=== PATIENT | male | born 1970 | race Caucasian/White ===

== ENCOUNTER → 2017-11-19 | Outpatient (CLI) | payer MEDICARE, OTHER, MEDICAID ==
[~2017-11-19] MED LIST: AEROECLIPSE1 EACH MC; ALBUTEROL2.5 MG/31 INH; AUGMENTIN 875875 MG PO; AZITHROMYC200 MG/52 PO; BACTRIM DS TAB1 EACH PO; BACTROBAN CREAM30 GM TOP; BIAXIN 500 MG500 M2 PO; CLARITIN10 MG PO; DILANTIN100 MG PO; FLO-PRED15 MG/5 ML PO; MIRALAX17 GM PO; PERIDEX15 ML PO; PHENOBARBI20 MG/5 ML PO; PREDNISONE50 MG PO; PROAIR HFA8.5 GM INH; SEPTRA SUSPENS100 ML PO; VENTOLIN HFA 1818 GM INH; ZPAK PO
== END ==
LOC: M.RAD 09:33
DX: R13.12 Dysphagia, oropharyngeal phase (principal)

== ENCOUNTER 2018-04-01 18:14 | Emergency (ER) | payer MEDICARE, OTHER, MEDICAID ==
[~2018-04-01] VITALS: Ht 162.6 cm; Wt 68.0 kg
[~2018-04-01 18:14] MED LIST changes: -MIRALAX17 GM PO; -PERIDEX15 ML PO
[2018-04-01] MEDS ORDERED: MIRALAX17 GM PO (18:30)
[2018-04-01] MEDS ORDERED: PERIDEX15 ML PO (18:30)
[2018-04-01 18:52] VITALS: BP 132/88
== END 2018-04-01 18:53 | disposition home or self-care (01) ==
LOC: M.ERS 18:14
DX: S00.81XA Abrasion of other part of head, initial encounter (principal); J45.909 Unspecified asthma, uncomplicated; G80.9 Cerebral palsy, unspecified; W06.XXXA Fall from bed, initial encounter; Y93.89 Activity, other specified; Y92.89 Other specified places as the place of occurrence of the external cause; Y99.8 Other external cause status

== ENCOUNTER 2018-06-26 18:16 | Emergency (ER) | payer MEDICARE, OTHER, MEDICAID ==
[~2018-06-26] VITALS: Ht 162.6 cm; Wt 63.5 kg
[~2018-06-26 18:16] MED LIST changes: +MIRALAX17 GM PO; +PERIDEX15 ML PO
[2018-06-26 20:20] VITALS: BP 130/89
== END 2018-06-26 20:21 | disposition home or self-care (01) ==
LOC: M.ERS 18:16
DX: S00.83XA Contusion of other part of head, initial encounter (principal); W05.0XXA Fall from non-moving wheelchair, initial encounter; Y93.89 Activity, other specified; Y92.89 Other specified places as the place of occurrence of the external cause; Y99.8 Other external cause status; J45.909 Unspecified asthma, uncomplicated

== ENCOUNTER 2018-11-22 09:28 | Inpatient (IN) | payer MEDICARE, OTHER, MEDICAID ==
[~2018-11-22] VITALS: Ht 162.6 cm; Wt 65.3 kg
--- NOTE | ~2018-11-22 | CON ---
[address] [address] CONSULTATION Name: PITER RICO Room: [address] IN M.R.#: [id number] Admission: 11/22/18 Attend Phys: Mo Andres MD Discharge: Date of : 68 Report #: [id number] THIS REPORT FOR: //name// CC: Albert Andres DICTATED BY: Jen Murphy [facility] DATE OF SERVICE: 11/23/2018 Please note at the time of this dictation, the patient was seen and physically examined by myself. REASON FOR CONSULTATION: Hematemesis. ALLERGIES: No known drug allergies. MEDICATIONS: From home include phenobarbital, Dilantin, Peridex and MiraLax. PAST MEDICAL HISTORY: Cerebral palsy, asthma, history of seizures. PAST SURGICAL HISTORY: He has a shunt. FAMILY HISTORY: Noncontributory. SOCIAL HISTORY: The patient is now living in a nursing home. No alcohol, tobacco or illegal drug use. REVIEW OF SYSTEMS: Twelve-point review of systems is essentially negative except what is mentioned in the HPI. PHYSICAL EXAMINATION: VITAL SIGNS: Temperature 36.4, pulse 81, respirations 18, blood pressure 94/55. HEART: Regular rate and rhythm. LUNGS: Clear. ABDOMEN: Soft, positive bowel sounds in all 4 quadrants with no masses or tenderness. NEUROLOGIC: Orientation, the patient understands what we are saying, but it is difficult in communicating verbally. LABORATORY DATA: Hemoglobin is 17.3, white count is 16, platelets is 300. BUN is 42, creatinine 0.9, GFR is 90, total bilirubin 0.5, alkaline phosphatase elevated at 174, ALT 29, AST is 15. CT of the abdomen showed fecal distention in the sigmoid and rectal part of the colon with some [place] [address] CONSULTATION Name: PITER RICO Room: [address] IN [facility]#: [id number] Admission: 11/22/18 Attend Phys: Mo Andres MD Discharge: Date of : 68 Report #: [id number] IMPRESSION: 1. Hematemesis. 2. Cerebral palsy. 3. Elevated alkaline phosphatase. 4. Leukocytosis. PLAN: 1. EGD today with Dr. Craft. 2. We will check a GGTP. 3. Further recommendations to be made once the procedure has been performed. Thank you for allowing us to participate in this patient's care. Please do not hesitate to call with any questions in regard to this consult. By: [id number] Craft MD /nt
--- NOTE | ~2018-11-22 | PROC ---
[address] [address] PROCEDURE REPORT Name: PITER RICO Room: [address] IN M.R.#: [id number] Admission: 11/22/18 Attend Phys: Mo Andres MD Discharge: Date of : 68 Report #: [id number] THIS REPORT FOR: //name// For GI report, please see the Provation report in Perceptive 7 content. By: [facility]3Medical Records Staff [facility] /JESUS
[2018-11-22 09:38] VITALS: BP 115/89
[2018-11-22 10:42] LABS: BE -3.3 mmol/L (-2 to +3); PCO2 29.7 mmHg (35.0-45.0); PO2 73.7 mmHg (75.0-100.0); pH 7.433 (7.340-7.450)
[2018-11-22 11:41] LABS: HEMATOCRIT 49.8 % (42.0-52.0); HEMOGLOBIN 17.3 gm/dL (14.0-18.0); MCH 31.1 pg (26.0-34.0); MCHC 34.7 g/dL (28.0-37.0); MCV 89.4 fL (80.0-100.0); MPV 9.2 fl. (7.2-11.1); NUCLEATED RBCS 0 /100WBC; PLATELET COUNT* 300 thou/uL (150-400); RBC 5.57 mil/uL (4.50-6.00); RDW-CV 12.9 % (10.5-14.5)
[2018-11-22 11:52] LABS: ALBUMIN 3.5 g/dL (3.4-5.0); CALCIUM 8.4 mg/dL (8.5-10.1); CREATININE 0.9 mg/dL (0.6-1.3); MAGNESIUM 2.1 mg/dL (1.8-2.4); POTASSIUM 4.1 mmol/L (3.5-5.1); TOTAL BILIRUBIN 0.5 mg/dL (<0.1-1.0)
[2018-11-22 12:01] LABS: ABSOLUTE LYMPHOCYTES 1.4 thou/uL (0.8-5.3); ABSOLUTE MONOCYTES 0.8 thou/uL (0.0-1.2); ABSOLUTE NEUTROPHILS 13.8 thou/uL (1.6-8.1); ANISOCYTOSIS 1+; PLATELET ESTIMATE ADEQUATE; POIKILOCYTOSIS 1+
[2018-11-22 12:06] LABS: DILANTIN 8.5 mcg/mL (10.0-20.0); PHENOBARBITAL* 18.3 mcg/mL (15.0-40.0)
[2018-11-22 14:34] VITALS: BP 115/89
[2018-11-22 14:46] LABS: URINE BILIRUBIN NEGATIVE (Negative); URINE BLOOD NEGATIVE (Negative); URINE CLARITY CLEAR; URINE COLOR YELLOW; URINE GLUCOSE-RANDOM NEGATIVE (Negative); URINE KETONES 1+ (Negative); URINE LEUKOCYTES-REFLEX NEGATIVE (Negative); URINE NITRITE-REFLEX NEGATIVE (Negative); URINE PROTEIN NEGATIVE (Negative); URINE UROBILINOGEN 0.2 E.U./dl (0.2-1.0)
[2018-11-22 15:33] VITALS: BP 115/89
[2018-11-22 15:45] VITALS: BP 105/69
[2018-11-22] MEDS ORDERED: DILANTIN50 MG PO (17:44)
[2018-11-22] MEDS ORDERED: PROAIR RESPICL90 MCG INH (17:45)
[2018-11-22] MEDS ORDERED: TYLENOL325 MG PO (17:46)
[2018-11-22] MEDS ORDERED: BISCOLAX10 MG RECTAL (17:47)
[2018-11-22] MEDS ORDERED: ENEMA133 M1 RECTAL (17:48)
[2018-11-22] MEDS ORDERED: DILANTIN100 MG PO (18:15)
[2018-11-22 21:10] VITALS: BP 94/55
[2018-11-23 08:30] VITALS: BP 134/77
[2018-11-23 11:34] VITALS: BP 134/77
[2018-11-23 15:44] VITALS: BP 119/86
[2018-11-24] VITALS: BP 108/69
[2018-11-24 04:12] LABS: ABSOLUTE EOSINOPHILS 0.3 thou/uL (0.0-0.7); ABSOLUTE LYMPHOCYTES 1.7 thou/uL (0.8-5.3); ABSOLUTE MONOCYTES 0.5 thou/uL (0.0-1.2); ABSOLUTE NEUTROPHILS 3.7 thou/uL (1.6-8.1); BASOPHILS 0.6 %; EOSINOPHILS 4.7 %; HEMATOCRIT 33.1 % (42.0-52.0); LYMPHOCYTES 27.7 %; MCH 31.1 pg (26.0-34.0); MCHC 34.8 g/dL (28.0-37.0); MCV 89.5 fL (80.0-100.0); MONOCYTES 8.1 %; MPV 8.3 fl. (7.2-11.1); NUCLEATED RBCS 0 /100WBC; POLYS 58.9 %; RDW-CV 12.6 % (10.5-14.5); WBC 6.3 thou/uL (4.0-11.0)
[2018-11-24 04:25] LABS: CALCIUM 7.5 mg/dL (8.5-10.1); CREATININE 0.5 mg/dL (0.6-1.3); POTASSIUM 3.1 mmol/L (3.5-5.1)
[2018-11-24 04:37] LABS: HEMOGLOBIN 11.5 gm/dL (14.0-18.0); PLATELET COUNT* 187 thou/uL (150-400)
[2018-11-24 08:16] VITALS: BP 111/58
[2018-11-24 13:48] LABS: % SATURATION 19 % (20-39); IRON 34 ug/dL (50-175)
[2018-11-24 16:00] VITALS: BP 115/81
[2018-11-24 22:34] VITALS: BP 110/56
[2018-11-25 06:44] LABS: ABSOLUTE BASOPHILS 0.1 thou/uL (0.0-0.2); ABSOLUTE EOSINOPHILS 0.3 thou/uL (0.0-0.7); ABSOLUTE LYMPHOCYTES 1.8 thou/uL (0.8-5.3); ABSOLUTE MONOCYTES 0.7 thou/uL (0.0-1.2); ABSOLUTE NEUTROPHILS 5.1 thou/uL (1.6-8.1); BASOPHILS 0.8 %; HEMOGLOBIN 11.9 gm/dL (14.0-18.0); LYMPHOCYTES 22.2 %; MCH 31.6 pg (26.0-34.0); MCV 90.3 fL (80.0-100.0); MPV 9.6 fl. (7.2-11.1); NUCLEATED RBCS 0 /100WBC; PLATELET COUNT* 152 thou/uL (150-400); RBC 3.77 mil/uL (4.50-6.00); RDW-CV 12.6 % (10.5-14.5)
[2018-11-25 06:54] LABS: CALCIUM 7.8 mg/dL (8.5-10.1); CREATININE 0.5 mg/dL (0.6-1.3); MAGNESIUM 1.9 mg/dL (1.8-2.4); POTASSIUM 3.8 mmol/L (3.5-5.1)
[2018-11-25 07:40] VITALS: BP 103/69
[2018-11-25 12:23] VITALS: BP 103/69
[2018-11-25] MEDS ORDERED: THERA M PLUS T1 EAC2 PO (12:27)
[2018-11-25] MEDS ORDERED: SENNA PLUS TAB1 EACH PO (12:27)
[2018-11-25] MEDS ORDERED: PROTONIX 20 MG20 M1 PO (12:35)
== END 2018-11-25 14:00 | disposition home or self-care (01) | DRG 392 ==
LOC: M.ERS 09:28 → M.3W 11:49 → M.TBA-ER 11:49 → M.3W 11:49
PROVIDERS: Personal Emergency Response Attendant; ADMIT Family Medicine
PROC: 0DJ08ZZ Inspection of Upper Intestinal Tract, Via Natural or Artificial Opening Endoscopic (ICD-10-PCS; principal; 2018-11-23)
DX: K21.9 Gastro-esophageal reflux disease without esophagitis (principal); K59.00 Constipation, unspecified; G80.9 Cerebral palsy, unspecified; J45.909 Unspecified asthma, uncomplicated; D72.829 Elevated white blood cell count, unspecified; E86.0 Dehydration; G40.909 Epilepsy, unspecified, not intractable, without status epilepticus; K44.9 Diaphragmatic hernia without obstruction or gangrene; D12.8 Benign neoplasm of rectum; E87.6 Hypokalemia; D50.9 Iron deficiency anemia, unspecified; D63.8 Anemia in other chronic diseases classified elsewhere; Z79.899 Other long term (current) drug therapy

== ENCOUNTER 2018-12-11 23:45 | Inpatient (IN) | payer MEDICARE, OTHER, MEDICAID ==
[~2018-12-11] VITALS: Ht 162.6 cm; Wt 71.7 kg
[~2018-12-11 23:45] MED LIST changes: +BISCOLAX10 MG RECTAL; +DILANTIN50 MG PO; +ENEMA133 M1 RECTAL; +PROAIR RESPICL90 MCG INH; +PROTONIX 20 MG20 M1 PO; +SENNA PLUS TAB1 EACH PO; +THERA M PLUS T1 EAC2 PO; +TYLENOL325 MG PO
[2018-12-11 23:47] VITALS: BP 137/104
[2018-12-12] MEDS ORDERED: ZANTAC 150MG T150 MG PO (00:03)
[2018-12-12] MEDS ORDERED: MIRALAX17 G1 PO (00:03)
[2018-12-12] MEDS ORDERED: OMEPRAZOLE20 MG PO (00:03)
[2018-12-12] MEDS ORDERED: DESITIN57 GM TOP (00:05)
[2018-12-12] MEDS ORDERED: TRIPLE ANTIBIO1 EAC1 TOP (00:05)
[2018-12-12 00:15] LABS: ABSOLUTE BASOPHILS 0.1 thou/uL (0.0-0.2); ABSOLUTE EOSINOPHILS 0.1 thou/uL (0.0-0.7); ABSOLUTE LYMPHOCYTES 1.2 thou/uL (0.8-5.3); ABSOLUTE MONOCYTES 0.9 thou/uL (0.0-1.2); ABSOLUTE NEUTROPHILS 9.1 thou/uL (1.6-8.1); BASOPHILS 0.5 %; HEMATOCRIT 43.9 % (42.0-52.0); HEMOGLOBIN 15.3 gm/dL (14.0-18.0); LYMPHOCYTES 10.5 %; MCH 30.9 pg (26.0-34.0); MCHC 34.7 g/dL (28.0-37.0); MONOCYTES 7.9 %; MPV 7.6 fl. (7.2-11.1); NUCLEATED RBCS 0 /100WBC; PLATELET COUNT* 311 thou/uL (150-400); POLYS 80.1 %; RBC 4.94 mil/uL (4.50-6.00); RDW-CV 13.2 % (10.5-14.5); WBC 11.3 thou/uL (4.0-11.0)
[2018-12-12 00:43] LABS: ALBUMIN 3.5 g/dL (3.4-5.0); ALKALINE PHOSPHATASE 173 U/L (46-116); ANION GAP 9 mmol/L (7-16); BUN 15 mg/dL (7-18); CALCIUM 8.7 mg/dL (8.5-10.1); CHLORIDE 102 mmol/L (98-107); CO2 29 mmol/L (21-32); CREATININE 0.6 mg/dL (0.6-1.3); GLUCOSE 130 mg/dL (70-99); LIPASE 88 U/L (73-393); SGOT 18 U/L (15-37); SGPT 27 U/L (30-65); SODIUM 140 mmol/L (136-145); TOTAL BILIRUBIN 0.3 mg/dL (<0.1-1.0); TOTAL PROTEIN 7.7 g/dL (6.4-8.2); TROPONIN-I LEVEL <0.06 ng/mL (<0.06)
[2018-12-12 00:44] LABS: URINE BILIRUBIN NEGATIVE (Negative); URINE BLOOD TRACE (Negative); URINE CLARITY CLEAR; URINE COLOR DARK YELLOW; URINE GLUCOSE-RANDOM NEGATIVE (Negative); URINE KETONES TRACE (Negative); URINE LEUKOCYTES-REFLEX NEGATIVE (Negative); URINE NITRITE-REFLEX NEGATIVE (Negative); URINE PROTEIN TRACE (Negative); URINE SPECIFIC GRAVITY 1.015 (1.005-1.030)
[2018-12-12 02:39] VITALS: BP 112/76
[2018-12-12 07:12] LABS: HEMATOCRIT 39.5 % (42.0-52.0); HEMOGLOBIN 13.5 gm/dL (14.0-18.0); MCH 30.6 pg (26.0-34.0); MCHC 34.3 g/dL (28.0-37.0); MCV 89.3 fL (80.0-100.0); MPV 7.9 fl. (7.2-11.1); RBC 4.42 mil/uL (4.50-6.00); WBC 8.2 thou/uL (4.0-11.0)
[2018-12-12 08:00] VITALS: BP 112/58
--- NOTE | 2018-12-12 08:12 | NUR ---
PT IS ABLE TO COMMUNICATE HIS NEEDS TO STAFF WITH DIFFICULTY; HE HAS COGNITIVE DELAY, CEREBRAL PALSY, AND IS MOSTLY NON-VERBAL (HE CAN SAY "HI" AND FOLLOW SOME COMMANDS). HE HAS DENIED THE NEED FOR PAIN MEDICATION UP TO THIS TIME. HE HAS BEEN NPO SINCE ADMIT FOR A GI CONSULT TODAY; NO FURTHER EVIDENCE OF A GI BLEED OBSERVED FROM ADMIT UP TO THIS TIME.
--- NOTE | 2018-12-12 10:10 | NUR ---
PT ORDERS RECEIVED AND ACKNOWLEDGED. PT'S FATHER IS IN ROOM W/ PT. FATHER INDICATES PT LIVES IN A LONG-TERM AND IS A TOTAL ASSIST FOR ALL FUNCTIONAL MOBILITY. PT'S FATHER INDICATES DUE TO PRIOR DEPENDENT LEVEL OF FUNCTION PT DOES NOT HAVE ANY FUNCTIONAL MOBILITY GOALS, THEREFORE ACUTE PT SERVICES ARE NOT INDICATED AT THIS TIME. WILL DISCHARGE PT ORDERS.
[2018-12-12 11:50] VITALS: BP 110/97
--- NOTE | 2018-12-12 12:09 | EKG ---
[place] [address] ELECTROCARDIOGRAM REPORT Name: PITER RICO Room: [address] ADM IN M.R.#: [id number] Admission: 12/12/18 Attend Phys: Slava Louie MD Discharge: Date of : 68 Report #: [id number] THIS REPORT FOR: //name// [facility] ED Test Date: 2018-12-12 Test Time: 00:17:06 Pat Name: PITER RICO Department: Room: [facility] Gender: M Credit Operations Processor: AP : 1970 Requested By: Bob Blank Order Number: [id number] MD: Obi Andrea Measurements Intervals [place] Rate: 87 P: 54 IN: 166 QRS: 68 QRSD: 86 T: 52 QT: 362 QTc: 436 Interpretive Statements Sinus rhythm Abnormal R-wave progression, early transition Baseline wander in lead(s) V5,V6 Compared to ECG 07/13/2012 02:47:15 Sinus tachycardia no longer present ST (T wave) deviation no longer present Electronically Signed On 12-12-2018 12:08:55 CDT by Obi Andrea [email or web address] <ELECTRONICALLY SIGNED> By: Obi Andrea MD, FAC 12/12/18 1208 0017 0017 Obi Andrea MD, [facility] /EPI
--- NOTE | 2018-12-12 14:12 | NUR ---
ASSUMED PT CARE AT 0800, LYING IN BED, ALERT/AWAKE, PT IS NONVERBAL, COGNITIVE DELAY. O2 SAT AT 90'S RA. TRACING SR ON FORENSIC EXAMINER. PT IS NPO, PT TAKE PILLS CRUSH WITH APPLESAUCE. PT NEEDS ASSIST WITH MEALS. PT LAST BM CANT ASSESS, ABDOMEN SOFT AND ROUND, PT IS INCONTINENT OF URINE. PT IV ACCESS INTACT, NS RUNNING. SKIN INTACT. PT REPOSITION Q2. VSS, AM ASSESSMENT CHARTED, MEDS GIVEN PER MAR, HOURLY ROUNDING, BED ALARM, CALL LIGHT WITHIN REACH. WILL CONTINUE TO MONITOR
[2018-12-12 15:59] VITALS: BP 104/66
--- NOTE | 2018-12-12 18:43 | NUR ---
PT ALERT/AWAKE, O2 SAT 90'S AT RA, SR ON TELE. PT FATHER AT BEDSIDE. PT NONVERVAL. PT BM UNABLE TO ASSESS. PT LAXATIVES GIVEN PER MAR. IV ACCESS INTACT, FLUID RUNNING. PT IS INCONTINENT. PT ON REGULAR DIET/CHOP, NEEDS CONSUMER SCIENCE TEACHER ON MEALS. GOOD MEAL INTAKE NOTED. CRUSH PILL WITH APPLESAUCE. PT TURN Q2, SKIN INTACT. HOURLY ROUNDING OBSERVED, CALL LIGHT WITHIN REACH, BED ALARM. VSS, ASSESSMENT CHARTED. WILL CONTINUE TO MONITOR.
--- NOTE | 2018-12-12 18:55 | NUR ---
I HAVE REVIEWED AND AGREE WITH THE ASSESMENT AND NOTES OF TUCKER Garcia RN ON 12/12/18
[2018-12-12 20:36] VITALS: BP 98/56
[2018-12-13 00:30] VITALS: BP 99/66
[2018-12-13 04:08] VITALS: BP 99/61
[2018-12-13 04:33] LABS: HEMATOCRIT 36.1 % (42.0-52.0); HEMOGLOBIN 12.5 gm/dL (14.0-18.0); MCH 31.3 pg (26.0-34.0); MCHC 34.7 g/dL (28.0-37.0); MCV 90.3 fL (80.0-100.0); MPV 8.5 fl. (7.2-11.1); RDW-CV 13.3 % (10.5-14.5); WBC 5.7 thou/uL (4.0-11.0)
[2018-12-13 04:58] LABS: ALBUMIN 2.7 g/dL (3.4-5.0); CALCIUM 7.8 mg/dL (8.5-10.1); CREATININE 0.6 mg/dL (0.6-1.3); POTASSIUM 3.9 mmol/L (3.5-5.1); TOTAL BILIRUBIN 0.2 mg/dL (<0.1-1.0); TOTAL PROTEIN 5.8 g/dL (6.4-8.2)
--- NOTE | 2018-12-13 05:51 | NUR ---
PT IS ABLE TO COMMUNICATE HIS NEEDS WITH DIFFICULTY; HE IS COGNITIVELY DELAYED, MOSTLY NON-VERBAL, AND MANY OF THE WORDS THAT HE CAN SPEAK ARE DIFFICULT TO UNDERSTAND. HE IS ABLE TO ANSWER SOME QUESTIONS AND FOLLOW SOME COMMANDS. HE HAS DENIED THE NEED FOR PAIN MEDS UP TO THIS TIME. POSSIBLE DISCHARGE TODAY WITH AN OUTPATIENT FOLLOW UP WITH GI TO OCCUR AT A LATER DATE.
[2018-12-13 08:00] VITALS: BP 131/71
[2018-12-13 09:01] LABS: URINE BILIRUBIN NEGATIVE (Negative); URINE BLOOD NEGATIVE (Negative); URINE CLARITY CLEAR; URINE COLOR YELLOW; URINE GLUCOSE-RANDOM NEGATIVE (Negative); URINE KETONES NEGATIVE (Negative); URINE LEUKOCYTES-REFLEX NEGATIVE (Negative); URINE NITRITE-REFLEX NEGATIVE (Negative); URINE PROTEIN NEGATIVE (Negative); URINE UROBILINOGEN 0.2 E.U./dl (0.2-1.0)
--- NOTE | 2018-12-13 10:05 | NUR ---
ASSUMED, PT CARE AT 0700. LYING IN BED, ALERT/AWAKE. O2 SAT AT 90'S RA. TRACING SR ON CHIEF CONTROLLER CENTER. PT NONVERBAL. PT BM UNABLE TO ASSESS, PT INCONTINENT OF URINE. U/A COLLECTED. PT NEEDS ASSISTANCE WITH MEAL, GOOD INTAKE NOTED, PT HAD REGULAR DIET/CHOP. IV ACCESS INTACT, FLUIDS RUNNING. PT REPOSITION Q2, HOURLY ROUNDING, CALL LIGHT WITHIN REACH, BED ALARM. VSS, AM ASSESSMENT CHARTED, MEDS GIVEN PER MAR. WILL CONTINUE TO MONITOR
--- NOTE | 2018-12-13 10:40 | NUR ---
DUE TO PT PLOF OF DEPENDENT IN [facility], NO OT SERVICES REQUIRED AT THIS TIME.
--- NOTE | 2018-12-13 11:47 | NUR ---
CM spoke with Pt's father/guardian at bedside. Pt resides at [facility] and is total care. Pt is A&Ox1 and wc bound. Following for disposition.
--- NOTE | 2018-12-13 18:39 | NUR ---
PT ALERT/AWAKE, PARENTS AT BEDSIDE. O2 SAT AT 90'S RA, SR/ST ON TELE. PT NONVERVAL. UNABLE TO ASSESS BM. PT HAD LAXATIVES PER OCT. PT HAD ABDOMEN XRAY. VSS, ASSESSMENT CHARTED. IV ACCESS INTACT AT R UPPER ARM, NS RUNNING. PT INCONTINENT. PT ON REGULAR DIET/CHOP, NEEDS ASSISTANCE WITH MEAL. PT SKIN INTACT. PT TURN Q2, HOURLY ROUNDING. CALL LIGHT WITHIN REACH. WILL CONTINUE TO MONITOR
--- NOTE | 2018-12-13 18:52 | NUR ---
I HAVE REVIEWED AND AGREE WITH THE CHARTING OF TUCKER Garcia RN ON 12/13/18
[2018-12-13 20:51] VITALS: BP 98/61
[2018-12-14] VITALS: BP 108/83
[2018-12-14 04:00] VITALS: BP 110/70
--- NOTE | 2018-12-14 06:58 | NUR ---
NO OT AT THIS TIME PT IS AT PLOF- DEPENDENT.
--- NOTE | 2018-12-14 07:58 | NUR ---
PT IS ABLE TO COMMUNICATE HIS NEEDS TO STAFF WITH DIFFICULTY; HE IS COGNITIVELY DELAYED AND HIS SPEECH IS DIFFICULT TO UNDERSTAND. HE IS ABLE TO ANSWER SOME QUESTIONS AND FOLLOW SOME COMMANDS. HE IS A FEEDER; BILATERAL ARMS CONTRACTED. PT DID HAVE TWO BMs DURING ASSISTANT BANQUET MANAGER. POSSIBLE DISCHARGE TODAY.
[2018-12-14 08:00] VITALS: BP 142/95
--- NOTE | 2018-12-14 08:00 | NUR ---
ASSUMED PT CARE AT 0700, PT ALERT TO SELF ONLY, ON BEDREST, FALL PRECAUTIONS IN PLACE, UNABLE TO MAKE NEEDS KNOWN. VSS, HIGHER LEVEL TEACHING ASSISTANT TRACING SINUS RHYTHM, RA, LS CTA. PT LIVES IN [place] BUT PARENTS AT BEDSIDE. BS ACTIVE X4 QUADS, ABD SOFT, NON TENDER. WILL CONT POC.
--- NOTE | 2018-12-14 11:50 | NUR ---
ORDERS RECEIVED AND CHART REVIEWED. PER RECORDS, PATIENT REQUIRES TOTAL ASSIST FOR ALL MOBILITIES AT IS [facility]. PATIENT'S MOTHER/FATHER ARE PRESENT AND CONFIRMS THIS INFORMATION. PATIENT WILL BE DC'ED FROM SKILLED P.T. SERVICES SECONDARY TO DEPENDENT BASE-LINE MOBILITY STATUS. CAMILLA FISCHER, MPT
[2018-12-14 12:42] VITALS: BP 110/70
[2018-12-14 13:42] VITALS: BP 113/68
--- NOTE | 2018-12-14 17:18 | NUR ---
PT DISCHARGED AT APPROX 1645 VIA WC TO VAN WITH PARENTS AND HALF-WAY STOCK PULLER. REPORT CALLED IN TO CHAVO HALF-WAY NURSE AND ALL DISCHARGE INSTRUCTIONS INCLUDING MEDICATIONS AND FOLLOW UP APPTS GIVEN TO PARENTS WELL, NEW SCRIPT CALLED IN TO [facility]. IV AND ARM REST BUILDER REMOVED, HOURLY ROUNDING COMPLETED ON PT.
--- NOTE | 2018-12-15 11:34 | CON ---
[address] [address] CONSULTATION Name: PITER RICO Room: [address] IN M.R.#: [id number] Admission: 12/12/18 Attend Phys: Slava Louie MD Discharge: 12/14/18 Date of : 68 Report #: [id number] THIS REPORT FOR: //name// CC: Albert Louie HISTORY OF PRESENT ILLNESS: The patient is a pleasant 48-year-old gentleman with past medical history significant for developmental delay, who is a resident of a long-term care facility, who was presenting for black-colored emesis. The patient was at the facility when he was transferred to the hospital for black-colored emesis. No other significant symptoms were reported and the patient is nonverbal; therefore, I am unable to obtain significant history from him. The patient had a similar episode 3 weeks back, when he had an EGD, which was completely unremarkable, except for enlarged/prominent looking ampulla. There was no evidence of fresh or old blood in the upper GI tract. PAST MEDICAL HISTORY: The patient has a history of seizure disorder, chronic constipation, asthma and cerebral palsy. PAST SURGICAL HISTORY: The patient had a Tiago shunt placed in the remote past. SOCIAL HISTORY: The patient lives in a long-term care facility and is nonverbal. FAMILY HISTORY: There is no history of esophageal or gastric cancer. REVIEW OF SYSTEMS: Unable to obtain because of the patient's mental status. PHYSICAL EXAMINATION: VITAL SIGNS: Temperature 37.3, pulse rate 83, blood pressure 112/58 and respiratory rate 17. GENERAL: The patient is alert and awake, but assessing his orientation is difficult as he is not verbal. HEENT: Pupils are equal, round and reactive to light and accommodation. Mucous membranes are moist. There is no congestion. LUNGS: Clear to auscultation bilaterally. CARDIOVASCULAR EXAMINATION: Rate and rhythm regular, S1, S2 present. ABDOMEN: Soft. There is no distention, guarding or rigidity. EXTREMITIES: Warm and well perfused. LABORATORY DATA: Hemoglobin is 13.5, hematocrit 39.5, platelet count 286,000 and WBC count 8.2. Sodium 140, potassium 4.0, chloride 102, bicarbonate 29, BUN 19 and creatinine 0.6. Total bilirubin 0.3, AST 18, ALT [address] abdomen and pelvis, which demonstrates diffuse fatty infiltration of liver, without mass or ductal dilation. Gallbladder is distended. Mild reactive hyperdense material, consistent with sludge. Small rounded focus of gases within the nondependent gallbladder[place] [address] CONSULTATION Name: PITER RICO Room: [address]#: [id number] Admission: 12/12/18 Attend Phys: Slava Louie MD Discharge: 12/14/18 Date of : 68 Report #: [id number] with gas-containing noncalcified gallstone as well as CT evidence of acute cholecystitis. ASSESSMENT AND PLAN: Pleasant 48-year-old gentleman with history as outlined above, presenting with one episode of black-colored emesis. He did have a recent EGD for the same symptoms, which was unremarkable, except for a prominent ampulla at that time and he was recommended for evaluation of the ampulla to rule out ampullary adenoma. Stop the PPI drip. I am placing the patient on a regular diet. We will monitor his hemoglobin tomorrow and discharge if stable. 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 <ELECTRONICALLY SIGNED> By: Bello Craft MD 12/15/18 1134 1102 0101Bello Craft MD /nt
== END 2018-12-14 16:45 | disposition home or self-care (01) | DRG 377 ==
LOC: M.ERS 23:45 → M.2W 12-12 01:37 → M.TBA-ER 12-12 01:37 → M.2W 12-12 03:02
PROVIDERS: Emergency Medicine Emergency Medical Services; Internal Medicine; ADMIT Internal Medicine
DX: K92.2 Gastrointestinal hemorrhage, unspecified (principal); E43 Unspecified severe protein-calorie malnutrition; G91.9 Hydrocephalus, unspecified; K59.09 Other constipation; G80.9 Cerebral palsy, unspecified; J45.909 Unspecified asthma, uncomplicated; G40.909 Epilepsy, unspecified, not intractable, without status epilepticus; D50.0 Iron deficiency anemia secondary to blood loss (chronic); Z68.27 Body mass index [BMI] 27.0-27.9, adult

== ENCOUNTER 2019-01-20 19:03 | Emergency (ER) | payer MEDICARE, OTHER, MEDICAID ==
[~2019-01-20] VITALS: Ht 157.5 cm; Wt 63.5 kg
[~2019-01-20 19:03] MED LIST changes: +DESITIN57 GM TOP; +MIRALAX17 G1 PO; +OMEPRAZOLE20 MG PO; +TRIPLE ANTIBIO1 EAC1 TOP; +ZANTAC 150MG T150 MG PO
[2019-01-20 19:32] VITALS: BP 135/72
== END 2019-01-20 19:37 | disposition home or self-care (01) ==
LOC: M.ERS 19:03
DX: D18.09 Hemangioma of other sites (principal); J45.909 Unspecified asthma, uncomplicated

== ENCOUNTER 2019-04-09 13:14 | Emergency (ER) | payer MEDICARE, OTHER, MEDICAID ==
[~2019-04-09] VITALS: Ht 162.6 cm; Wt 66.2 kg
[2019-04-09] MEDS ORDERED: DULCOLAX10 MG RECTAL (13:37)
[2019-04-09] MEDS ORDERED: VENTOLIN HFA 1818 GM INH (13:38)
[2019-04-09] MEDS ORDERED: [UNRECOGNIZED DRUG - OTHER] TOP (13:38)
[2019-04-09] MEDS ORDERED: FLEET ENEMA133 ML RECTAL (13:38)
[2019-04-09] MEDS ORDERED: PHENOBARBI20 MG/5 ML PO (13:39)
[2019-04-09] MEDS ORDERED: PERIDEX 0.12%473 M1 SWISH&SPIT (13:40)
[2019-04-09] MEDS ORDERED: MIRALAX17 GM PO (13:40)
[2019-04-09] MEDS ORDERED: TYLENOL325 MG PO (13:40)
[2019-04-09] MEDS ORDERED: DILANTIN50 MG PO (13:40)
[2019-04-09] MEDS ORDERED: DESITIN57 GM TOP (13:41)
[2019-04-09] MEDS ORDERED: DUODERM1 EACH TOP (13:42)
[2019-04-09 14:05] LABS: ABSOLUTE EOSINOPHILS 0.1 thou/uL (0.0-0.7); ABSOLUTE LYMPHOCYTES 0.9 thou/uL (0.8-5.3); ABSOLUTE MONOCYTES 1.1 thou/uL (0.0-1.2); ABSOLUTE NEUTROPHILS 11.7 thou/uL (1.6-8.1); BASOPHILS 0.2 %; EOSINOPHILS 0.6 %; HEMOGLOBIN 16.1 gm/dL (14.0-18.0); LYMPHOCYTES 6.5 %; MCH 30.1 pg (26.0-34.0); MCHC 33.5 g/dL (28.0-37.0); MCV 89.8 fL (80.0-100.0); MONOCYTES 7.7 %; MPV 8.2 fl. (7.2-11.1); NUCLEATED RBCS 0 /100WBC; PLATELET COUNT* 239 thou/uL (150-400); RBC 5.35 mil/uL (4.50-6.00); RDW-CV 14.5 % (10.5-14.5); WBC 13.7 thou/uL (4.0-11.0)
[2019-04-09 14:16] LABS: POTASSIUM 3.5 mmol/L (3.5-5.1)
[2019-04-09 14:41] LABS: CALCIUM 8.5 mg/dL (8.5-10.1); CREATININE 0.6 mg/dL (0.6-1.3)
[2019-04-09 14:46] LABS: ALBUMIN 3.4 g/dL (3.4-5.0); TOTAL BILIRUBIN 0.3 mg/dL (<0.1-1.0); TOTAL PROTEIN 7.7 g/dL (6.4-8.2)
[2019-04-09 15:33] LABS: URINE BLOOD 1+ (Negative); URINE CLARITY CLEAR; URINE COLOR YELLOW; URINE GLUCOSE-RANDOM NEGATIVE (Negative); URINE KETONES NEGATIVE (Negative); URINE LEUKOCYTES-REFLEX NEGATIVE (Negative); URINE NITRITE-REFLEX NEGATIVE (Negative); URINE PROTEIN 2+ (Negative); URINE SPECIFIC GRAVITY 1.025 (1.005-1.030)
[2019-04-09 15:36] LABS: ICTOTEST (BILI CONFIRMATORY) Negative (Negative); URINE BILIRUBIN 1+ (Negative)
[2019-04-09 15:42] LABS: SQUAMOUS 0-3 Few /LPF (0-3)
[2019-04-09 15:43] LABS: BACTERIA-REFLEX >30 Many /HPF (None Seen); CASTS None Seen /LPF (None Seen); MUCUS >6 Heavy strn/LPF (None Seen); URINE RBC 3-10 Few /HPF (0-2); URINE WBC-REFLEX 0-5 Rare /HPF (0-5)
[2019-04-09 15:44] LABS: CRYSTALS None Seen /LPF (None Seen)
[2019-04-09] MEDS ORDERED: BACTRIM DS TAB1 EACH PO (15:47)
[2019-04-09 15:55] VITALS: BP 114/81
--- NOTE | 2019-04-11 13:09 | EKG ---
[place] [address] ELECTROCARDIOGRAM REPORT Name: TRISHAPITER Daniel [id number] Admission: 04/09/19 Attend Phys: Discharge: 04/09/19 Date of : 68 Report #: [id number] THIS REPORT FOR: //name// [facility] ED Test Date: 2019-04-09 Test Time: 13:29:22 Pat Name: PITER RICO Department: Room: Gender: M Nutrition Services Worker: : 1970 Requested By: Kenn Sam Order Number: [id number] MD: Albert Das Measurements Intervals [place] Rate: 90 P: 59 MT: 164 QRS: 89 QRSD: 80 T: 32 QT: 347 QTc: 425 Interpretive Statements Sinus rhythm Compared to ECG 12/12/2018 00:17:06 no change Electronically Signed On 04-11-2019 13:09:42 CDT by Albert Das [email or web address] <ELECTRONICALLY SIGNED> By: Albert Das MD, [facility] 04/11/19 1309 1329 1329 Albert Das MD, [facility] /EPI
== END 2019-04-09 15:51 | disposition home or self-care (01) ==
LOC: M.ERS 13:14
PROVIDERS: Emergency Medicine
DX: N39.0 Urinary tract infection, site not specified (principal); J45.909 Unspecified asthma, uncomplicated; Z98.2 Presence of cerebrospinal fluid drainage device

== ENCOUNTER 2019-06-25 18:24 | Inpatient (IN) | payer MEDICARE, OTHER, MEDICAID ==
[~2019-06-25] VITALS: Ht 162.6 cm; Wt 68.0 kg
[~2019-06-25 18:24] MED LIST changes: +DULCOLAX10 MG RECTAL; +DUODERM1 EACH TOP; +FLEET ENEMA133 ML RECTAL; +PERIDEX 0.12%473 M1 SWISH&SPIT; +[UNRECOGNIZED DRUG - OTHER] TOP
[2019-06-25 18:31] VITALS: BP 116/77
[2019-06-25 19:19] LABS: URINE BILIRUBIN NEGATIVE (Negative); URINE BLOOD NEGATIVE (Negative); URINE CLARITY CLEAR; URINE COLOR YELLOW; URINE GLUCOSE-RANDOM NEGATIVE (Negative); URINE KETONES NEGATIVE (Negative); URINE LEUKOCYTES-REFLEX NEGATIVE (Negative); URINE NITRITE-REFLEX NEGATIVE (Negative); URINE PROTEIN TRACE (Negative); URINE SPECIFIC GRAVITY >= 1.030 (1.005-1.030); URINE UROBILINOGEN 0.2 E.U./dl (0.2-1.0)
[2019-06-25 19:28] LABS: ABSOLUTE BASOPHILS 0.1 thou/uL (0.0-0.2); ABSOLUTE EOSINOPHILS 0.4 thou/uL (0.0-0.7); ABSOLUTE LYMPHOCYTES 1.5 thou/uL (0.8-5.3); ABSOLUTE MONOCYTES 0.9 thou/uL (0.0-1.2); ABSOLUTE NEUTROPHILS 6.2 thou/uL (1.6-8.1); BASOPHILS 0.6 %; HEMATOCRIT 46.7 % (42.0-52.0); HEMOGLOBIN 16.3 gm/dL (14.0-18.0); MCH 31.1 pg (26.0-34.0); MCHC 34.8 g/dL (28.0-37.0); MCV 89.3 fL (80.0-100.0); MONOCYTES 10.2 %; MPV 8.5 fl. (7.2-11.1); NUCLEATED RBCS 0 /100WBC; PLATELET COUNT* 336 thou/uL (150-400); POLYS 68.2 %; RBC 5.23 mil/uL (4.50-6.00)
[2019-06-25 19:49] LABS: CALCIUM 8.7 mg/dL (8.5-10.1); CREATININE 0.6 mg/dL (0.6-1.3); POTASSIUM 3.8 mmol/L (3.5-5.1)
[2019-06-25 19:54] LABS: ALBUMIN 3.1 g/dL (3.4-5.0); TOTAL BILIRUBIN 0.2 mg/dL (<0.1-1.0); TOTAL PROTEIN 7.5 g/dL (6.4-8.2)
[2019-06-26 01:47] VITALS: BP 130/92
[2019-06-26 02:03] VITALS: BP 110/83
[2019-06-26] MEDS ORDERED: DILANTIN50 MG PO (05:55)
[2019-06-26 16:15] VITALS: BP 131/92
[2019-06-26 21:00] VITALS: BP 98/53
[2019-06-27 04:47] LABS: HEMATOCRIT 41.8 % (42.0-52.0); MCH 30.2 pg (26.0-34.0); MCHC 33.7 g/dL (28.0-37.0); MCV 89.7 fL (80.0-100.0); MPV 8.2 fl. (7.2-11.1); RBC 4.66 mil/uL (4.50-6.00); RDW-CV 12.8 % (10.5-14.5); WBC 6.6 thou/uL (4.0-11.0)
[2019-06-27 04:56] LABS: HEMOGLOBIN 14.1 gm/dL (14.0-18.0)
[2019-06-27 05:02] LABS: ALBUMIN 2.8 g/dL (3.4-5.0); CALCIUM 8.3 mg/dL (8.5-10.1); CREATININE 0.6 mg/dL (0.6-1.3); MAGNESIUM 2.3 mg/dL (1.8-2.4); POTASSIUM 3.8 mmol/L (3.5-5.1); TOTAL BILIRUBIN 0.3 mg/dL (<0.1-1.0); TOTAL PROTEIN 6.3 g/dL (6.4-8.2)
[2019-06-27 08:00] VITALS: BP 125/93
[2019-06-27] MEDS ORDERED: CITRATE OF MAG296 M1 PO (08:26)
[2019-06-27] MEDS ORDERED: MIRALAX17 GM PO (08:26)
[2019-06-27 12:20] VITALS: BP 125/93
[2019-06-27 12:33] VITALS: BP 125/93
[2019-06-27 17:12] VITALS: BP 125/93
--- NOTE | 2019-06-28 06:53 | CON ---
[address] [address] CONSULTATION Name: PITER RICO Room: [address] IN M.R.#: [id number] Admission: 06/25/19 Attend Phys: Tulio Enriquez, Discharge: 06/27/19 Date of : 68 Report #: [id number] THIS REPORT FOR: //name// CC: Albert Enriquez DATE OF SERVICE: 06/26/2019 HISTORY OF PRESENT ILLNESS: This is a pleasant 48-year-old gentleman known to our service from his previous admissions. The patient has a history of cerebral palsy, developmental delay, chronic constipation. He was brought into the hospital because he was noted to be sick in the residential. The patient at baseline is mostly nonverbal; therefore, significant history cannot be obtained from him. It appears that the patient was noted to have severe constipation on the CT scan in the ER and was given laxatives and enema, which resulted in a large bowel movement. The patient is seated comfortably in the bed at this time. His father is at his bedside and the patient has no significant complaints of abdominal pain, nausea or vomiting at this time. PAST MEDICAL HISTORY: Significant for cerebral palsy. PAST SURGICAL HISTORY: The patient had a ORCHARD SPRAYER shunt placed. SOCIAL HISTORY: The patient lives in a residential and there is no known history of smoking, alcohol or recreational drug use. FAMILY HISTORY: Reviewed and not significant. REVIEW OF SYSTEMS: Unable to obtain because of the patient's clinical status. PHYSICAL EXAMINATION: VITAL SIGNS: Temperature 36.9, pulse rate 109, respiratory rate 15, blood pressure 110/83, pulse ox 93%. GENERAL: The patient is alert, awake, oriented x 3. HEENT: Pupils are equal, round, reactive to light and accommodation. Mucous membranes are moist. There is no congestion. LUNGS: Clear to auscultation bilaterally. CARDIOVASCULAR: Rate and rhythm regular, S1, S2 present. ABDOMEN: Soft. There is no distention, guarding or rigidity. EXTREMITIES: Warm, well perfused. LABORATORY DATA: Hemoglobin 16.3, hematocrit 46.7, platelet count 336, WBC count 9.0. Sodium 140, potassium 3.8, chloride 104, bicarbonate 28, BUN 17, creatinine 0.6. Total bilirubin 0.2, AST 13, ALT 36, alkaline phosphatase 223, albumin 3.1. [place] [address] CONSULTATION Name: PITER RICO Room: [address]#: [id number] Admission: 06/25/19 Attend Phys: Tulio Enriquez, Discharge: 06/27/19 Date of : 68 Report #: [id number] IMAGING: CT abdomen and pelvis on 06/25/2019, demonstrates fecal impaction with large amount of stool in the distal colon and rectum, distended stomach with some fluid distention in the distal esophagus. Gallbladder demonstrates gallstones. ORCHARD SPRAYER shunt coiled in the right upper abdomen. Acute abdomen series performed today. Contrast is felt in the bladder and kidneys. Clinical correlation is recommended as the patient had CT scan on 06/25/2019. Fecal impaction suggested on CT scan is no longer present. ASSESSMENT AND PLAN: Pleasant 48-year-old gentleman with history outlined above, presenting with fecal impaction. This appears to have resolved. I would recommend to continue to monitor him clinically. No further intervention is warranted or planned at this stage. Thank you for this consultation. <ELECTRONICALLY SIGNED> By: Bello Craft MD 06/28/19 0653 1335 1938Bello Craft MD /nt
[2019-06-28] MEDS ORDERED: ZOFRAN ODT4 MG PO (21:43)
[2019-06-28] MEDS ORDERED: COMPAZINE10 M2 PO (21:43)
== END 2019-06-27 17:15 | disposition home or self-care (01) | DRG 445 ==
LOC: M.ERS 18:24 → M.TBA-ER 23:37 → M.ORTHSURG 23:37
PROVIDERS: Internal Medicine; Personal Emergency Response Attendant; ADMIT Family Medicine
DX: K80.80 Other cholelithiasis without obstruction (principal); E44.1 Mild protein-calorie malnutrition; J45.909 Unspecified asthma, uncomplicated; R56.9 Unspecified convulsions; K59.00 Constipation, unspecified; G80.9 Cerebral palsy, unspecified; R07.89 Other chest pain; R60.9 Edema, unspecified; F17.210 Nicotine dependence, cigarettes, uncomplicated; Z68.25 Body mass index [BMI] 25.0-25.9, adult

== ENCOUNTER 2019-06-28 18:32 | Emergency (ER) | payer MEDICARE, OTHER, MEDICAID ==
[~2019-06-28] VITALS: Ht 152.4 cm; Wt 64.4 kg
[~2019-06-28 18:32] MED LIST changes: +CITRATE OF MAG296 M1 PO
[2019-06-28 19:26] LABS: ABSOLUTE BASOPHILS 0.1 thou/uL (0.0-0.2); ABSOLUTE EOSINOPHILS 0.1 thou/uL (0.0-0.7); ABSOLUTE MONOCYTES 0.7 thou/uL (0.0-1.2); ABSOLUTE NEUTROPHILS 7.5 thou/uL (1.6-8.1); BASOPHILS 0.6 %; EOSINOPHILS 1.6 %; HEMATOCRIT 43.6 % (42.0-52.0); HEMOGLOBIN 15.2 gm/dL (14.0-18.0); LYMPHOCYTES 10.4 %; MCH 30.8 pg (26.0-34.0); MCHC 34.8 g/dL (28.0-37.0); MCV 88.5 fL (80.0-100.0); MONOCYTES 7.5 %; MPV 8.3 fl. (7.2-11.1); NUCLEATED RBCS 0 /100WBC; PLATELET COUNT* 310 thou/uL (150-400); POLYS 79.9 %; RBC 4.93 mil/uL (4.50-6.00); RDW-CV 12.6 % (10.5-14.5); WBC 9.3 thou/uL (4.0-11.0)
[2019-06-28 19:40] LABS: CALCIUM 8.7 mg/dL (8.5-10.1); CREATININE 0.5 mg/dL (0.6-1.3); POTASSIUM 3.5 mmol/L (3.5-5.1)
[2019-06-28 19:44] LABS: ALBUMIN 3.5 g/dL (3.4-5.0); TOTAL BILIRUBIN 0.3 mg/dL (<0.1-1.0); TOTAL PROTEIN 7.8 g/dL (6.4-8.2)
[2019-06-28] MEDS ORDERED: ZOFRAN ODT4 MG PO (21:43)
[2019-06-28] MEDS ORDERED: COMPAZINE10 M2 PO (21:43)
[2019-06-28 22:05] VITALS: BP 127/100
== END 2019-06-28 22:05 | disposition home or self-care (01) ==
LOC: M.ERS 18:32
PROVIDERS: Emergency Medicine
DX: R10.9 Unspecified abdominal pain (principal); R11.10 Vomiting, unspecified; J45.909 Unspecified asthma, uncomplicated

== ENCOUNTER 2020-09-29 09:00 | Inpatient (IN) | payer MEDICARE, OTHER, MEDICAID ==
[~2020-09-29] VITALS: Ht 162.6 cm; Wt 51.3 kg
[~2020-09-29 09:00] MED LIST changes: +COMPAZINE10 M2 PO; +ZOFRAN ODT4 MG PO
[2020-09-29 09:14] VITALS: BP 105/81
[2020-09-29] MEDS ORDERED: FAMOTIDINE 40 M40 M1 PO (09:24)
[2020-09-29] MEDS ORDERED: THEREMS-M1 EACH PO (09:26)
[2020-09-29] MEDS ORDERED: SENNA PLUS TAB1 EACH PO (09:28)
[2020-09-29] MEDS ORDERED: ENEMA READY-TO133 ML (09:31)
[2020-09-29] MEDS ORDERED: TRIPLE ANTIBIOT28 G2 (09:34)
[2020-09-29] MEDS ORDERED: [UNRECOGNIZED DRUG - OTHER] (09:35)
[2020-09-29 10:17] LABS: ABSOLUTE LYMPHOCYTES 0.7 thou/uL (0.8-5.3); ABSOLUTE MONOCYTES 0.6 thou/uL (0.0-1.2); ABSOLUTE NEUTROPHILS 5.5 thou/uL (1.6-8.1); BASOPHILS 0.5 %; EOSINOPHILS 0.5 %; HEMATOCRIT 48.1 % (42.0-52.0); HEMOGLOBIN 16.5 gm/dL (14.0-18.0); LYMPHOCYTES 10.8 %; MCH 30.5 pg (26.0-34.0); MCHC 34.3 g/dL (28.0-37.0); MCV 88.9 fL (80.0-100.0); MONOCYTES 9.1 %; MPV 7.8 fl. (7.2-11.1); NUCLEATED RBCS 0 /100WBC; PLATELET COUNT* 236 thou/uL (150-400); POLYS 79.1 %; RBC 5.41 mil/uL (4.50-6.00); RDW-CV 13.4 % (10.5-14.5); WBC 6.9 thou/uL (4.0-11.0)
[2020-09-29 10:20] LABS: CALCIUM 8.3 mg/dL (8.5-10.1); CREATININE 0.6 mg/dL (0.6-1.3); POTASSIUM 3.7 mmol/L (3.5-5.1)
[2020-09-29 10:25] LABS: ALBUMIN 3.3 g/dL (3.4-5.0); TOTAL BILIRUBIN 0.2 mg/dL (<0.1-1.0); TOTAL PROTEIN 7.3 g/dL (6.4-8.2)
[2020-09-29 11:03] LABS: URINE BILIRUBIN NEGATIVE (Negative); URINE BLOOD TRACE (Negative); URINE CLARITY CLEAR; URINE COLOR YELLOW; URINE GLUCOSE-RANDOM NEGATIVE (Negative); URINE KETONES NEGATIVE (Negative); URINE LEUKOCYTES-REFLEX NEGATIVE (Negative); URINE NITRITE-REFLEX NEGATIVE (Negative); URINE PROTEIN 1+ (Negative); URINE SPECIFIC GRAVITY 1.015 (1.005-1.030)
[2020-09-29 14:35] VITALS: BP 122/86
[2020-09-29 14:50] VITALS: BP 127/79
--- NOTE | 2020-09-29 17:54 | NUR ---
RECEIVED REPORT FROM RAMYA CERRATO. PT ARRIVED ON UNIT AT 1450. ADMIT DONE, INFORMATION GATHERED FROM FATHER. FATHER UPDATED ON PT. PT IN BED. PT'S OWN WHEEL CHAIR IN ROOM. PT DOES NOT MOVE EXTREMITIES. IV INTACT RIGHT FOOT. MED/SURG STATUS. PT IS INCONTINENT. MEDS GIVEN PER MAR. HOURLY ROUNDING PERFORMED. PT IS NPO STATUS. NO VOMITING SINCE BEEN ON THE FLOOR. ABLE TO SWALLOW. PT Q2 TURNS. CALL LIGHT WITHIN REACH. WILL CONTINUE TO MONITOR.
[2020-09-29 20:30] VITALS: BP 107/69
[2020-09-30] VITALS: BP 117/83
--- NOTE | 2020-09-30 05:46 | NUR ---
PATIENT SLEPT MOST OF THE NIGHT. ABOUT 0 PATIENT WAS YELLING OUT WENT IN ROOM TO FIND PATIENT HAD VOMITED ALL OVER HIS GOWN. IT APPEARED TO BE STOOL. NOTIFIED SURGERY RESIDENT PRODUCTION TRAINER. NG TUBE WAS PLACED TO LIS WITH DARK BROWN DRAINAGE. IV FLUIDS CONTINUE TO INFUSE AT 100. WILL CONTINUE TO MONITOR.
[2020-09-30 07:51] VITALS: BP 125/83
--- NOTE | 2020-09-30 09:10 | NUR ---
RECEIVED REPORT AROUND 07. ASSUMED CARE. IV INTACT RIGHT FOOT. MED/SURG STATUS. VS AND ASSESSMENT CHARTED. NG TUBE INTACT. INTERMITTMEN SUCTIONS. MEDS GIVEN PER OCT. MEDS CRUSHED. PT LYING IN BED. BED/WHEEL CHAIR BOUND. Q2 TURNS. CALL LIGHT WTIHIN REACH. WILL CONTINUE TO MONITOR.
--- NOTE | 2020-09-30 12:41 | EKG ---
[place] [address] ELECTROCARDIOGRAM REPORT Name: SERGE RICO Room: [address] ADM IN M.R.#: [id number] Admission: 09/29/20 Attend Phys: Dee Chiu, Discharge: Date of : 68 Date of Service: 09/29/20 1135 Report #: [id number] THIS REPORT FOR: //name// [facility] ED Test Date: 2020-09-29 Test Time: 11:35:43 Pat Name: SERGE RICO Department: Room: [facility] Gender: M Bowling Ball Patcher: CARIDAD : 1970 Requested By: Bob Blank Order Number: [id number] MD: Serge Stratton Measurements Intervals [place] Rate: 90 P: 81 [place]: 159 QRS: 86 QRSD: 84 T: 21 QT: 379 QTc: 464 Interpretive Statements Sinus rhythm Borderline T wave abnormalities Compared to ECG 04/09/2019 13:29:22 T-wave abnormality now present Electronically Signed On 09-30-2020 12:40:50 BALER by Serge Stratton [email or web address] <ELECTRONICALLY SIGNED> By: David Stratton MD, [facility] 09/30/20 1240 1135 1135 David Stratton MD, [facility] /EPI
[2020-09-30 16:00] VITALS: BP 115/75
--- NOTE | 2020-09-30 17:01 | NUR ---
NO NEW CHANGES. IV INTACT RIGHT FOOT. MEDS GIVEN PER OCT. NG TUBE INTACT, CLAMPED. POSSIBLE D/C OF NG TUBE TOMORROW PER GI. FATHER AT BEDSIDE. UPDATED ON PT. PT CLEAR LIQUID DIET. PT FEEDER IF FAMILY ISN'T PRESENT. Q2 TURNS. MED/SURG STATUS. PT INCONTINENT. HAS BEEN CHANGED THROUGHOUT SHIFT. HOURLY ROUNDING PERFORMED. PT ABLE TO SAY SIMPLE WORDS. NOT ABLE TO CALL OUT. CONTRACTED. CAN MOVE HEAD. WILL CONTINUE TO MONITOR.
[2020-09-30 20:00] VITALS: BP 113/86
[2020-10-01 04:25] VITALS: BP 110/67
[2020-10-01 04:38] LABS: HEMATOCRIT 40.4 % (42.0-52.0); MCH 30.7 pg (26.0-34.0); MCHC 34.4 g/dL (28.0-37.0); MCV 89.3 fL (80.0-100.0); MPV 8.2 fl. (7.2-11.1); RBC 4.53 mil/uL (4.50-6.00); RDW-CV 13.3 % (10.5-14.5)
[2020-10-01 04:55] LABS: CALCIUM 7.8 mg/dL (8.5-10.1); CREATININE 0.4 mg/dL (0.6-1.3); POTASSIUM 3.5 mmol/L (3.5-5.1)
[2020-10-01 05:02] LABS: HEMOGLOBIN 13.9 gm/dL (14.0-18.0)
[2020-10-01 08:20] VITALS: BP 110/75
--- NOTE | 2020-10-01 13:35 | NUR ---
CM SPOKE TO THE PT'S MOTHER AT THE BEDSIDE TO DISCUSS CM ASSESSMENT. PT'S MOTHER AND FATHER ARE HIS LEGAL GUARDIANS. PT'S MOTHER INFORMS THAT THE PT RESIDES AT [facility]. PT IS A TOTAL CARE AT THE FACILITY. PT DOES NOT AMBULATE AND USES A W/C FOR MOBILITY. PT REQUIRES ASSISTANCE WITH FEEDING AND IS INCONTINENT OF BOWEL AND BLADDER. CM CONTACTED THE PT'S [facility] AND WAS INFORMED OF THE NEED TO CONTACT THE PRECIPITATOR OPERATOR DANYEL WHEN THE PT IS READY TO D/C AND FAX D/C ORDERS. THE [facility] WILL PROVIDE TRANSPORTATION FOR THE PT AT D/C. PT'S WHEELCHAIR IS HERE IN THE HOSPITAL ROOM. CM WILL REMAIN AVAILABLE TO ASSIST AND FOLLOW NEEDED. DANYEL (PRECIPITATOR OPERATOR) PHONE: [phone] FAX: [phone]
[2020-10-01 15:29] VITALS: BP 98/57
[2020-10-01 20:20] VITALS: BP 109/68
--- NOTE | 2020-10-01 21:50 | NUR ---
Pt remained alert and orient to self for entire shift. Pt is pleasant with staff. Pt able to answer yes and no questions appropriately. vital signs stable. Pt did not have a bm today. Pt's mom in room most of the day and helped feed the pt. Pt ate 75% of his clear liquid trays. Pt did not vomit today. Pt turned Q2 hours. Bed in low position, bed alarm on, call light within reach.
[2020-10-02 04:42] LABS: HEMATOCRIT 40.9 % (42.0-52.0); HEMOGLOBIN 14.1 gm/dL (14.0-18.0); MCH 30.1 pg (26.0-34.0); MCHC 34.4 g/dL (28.0-37.0); MCV 87.7 fL (80.0-100.0); MPV 8.1 fl. (7.2-11.1); RBC 4.66 mil/uL (4.50-6.00); RDW-CV 13.3 % (10.5-14.5)
[2020-10-02 05:12] LABS: CALCIUM 7.5 mg/dL (8.5-10.1); CREATININE 0.4 mg/dL (0.6-1.3); POTASSIUM 3.2 mmol/L (3.5-5.1)
--- NOTE | 2020-10-02 08:16 | NUR ---
PATIENT HAS SLEPT OFF AND ON DURING THE NIGHT. VSS ON RA, ALTHOUGH LOW GRADE TEMP OF 99.1. MEDICATIONS GIVEN ORDERED AND CHARTED. PATIENT HAD 3 BM'S DURING THE NIGHT AND IS INCONTINENT OF BOWEL AND BLADDER. PONCHO CARE PERFORMED AND COMPLETE BED CHANGE DONE. BARRIER CREAM APPLIED. IV IN RIGHT ANKLE-NS @ 100ML/HR. NG TUBE TO RIGHT NARE-CLAMPED. PATIENT TOLERATING CLEAR LIQUIDS. REPORT GIVEN TO DAY NURSE. POTASSIUM TO BE GIVEN BY DAY NURSE D/T LOW POTASSIUM LEVEL THIS AM. FALL PRECAUTIONS IN PLACE AND HOURLY ROUNDS MADE. WILL CONTINUE WITH PLAN OF CARE AND NURSING TO MONITOR.
[2020-10-02 08:45] VITALS: BP 93/61
--- NOTE | 2020-10-02 11:50 | NUR ---
DISCUSSED IN PRIME TIME ROUNDS. POSSIBLE DISCHARGE TOMORROW BACK TO [facility]. IS AFEBRILE. NG TUBE TO BE REMOVED TODAY AND ADVANCE TO FULL LIQUID DIET. FATHER AT BEDSIDE AND INTERACTS WITH PT.
[2020-10-02 16:04] VITALS: BP 101/72
[2020-10-02 21:30] VITALS: BP 138/92
--- NOTE | 2020-10-02 22:02 | NUR ---
Pt remained alert for entire shift. Pt smiled and greeted staff when entering the room. Pt denies any pain in stomach. Vital signs stable. Pt's dad in room and is helpful with feeding pt and helping with medications. Pt had 2 BMs today. The second BM was liquid. Pt is incontinent of bowel and bladder. Pt turned Q2 hours. Pt's dad stated he vomitted a small amout of dark colored emesis after eating dinner. Bed in low position, bed alarm in, calll light within reach.
[2020-10-03 04:28] LABS: HEMATOCRIT 38.7 % (42.0-52.0); HEMOGLOBIN 13.5 gm/dL (14.0-18.0); MCH 30.6 pg (26.0-34.0); MCHC 34.8 g/dL (28.0-37.0); MPV 9.1 fl. (7.2-11.1); RBC 4.39 mil/uL (4.50-6.00); RDW-CV 13.4 % (10.5-14.5); WBC 12.7 thou/uL (4.0-11.0)
[2020-10-03 04:41] VITALS: BP 146/88
[2020-10-03 04:49] LABS: ALBUMIN 2.1 g/dL (3.4-5.0); CALCIUM 7.3 mg/dL (8.5-10.1); CREATININE 0.4 mg/dL (0.6-1.3); MAGNESIUM 2.4 mg/dL (1.8-2.4); TOTAL BILIRUBIN 0.3 mg/dL (<0.1-1.0); TOTAL PROTEIN 4.8 g/dL (6.4-8.2)
--- NOTE | 2020-10-03 07:15 | NUR ---
PATIENT HAS SLEPT WELL THROUGHOUT MOST OF THE NIGHT. VSS ON RA, ALTHOUGH TEMP ELEVATED. TYLENOL GIVEN. MEDICATIONS GIVEN ORDERED AND CHARTED. PATIENT HAS REMAINED BEDREST DURING THE NIGHT. PATIENT INCONTINENT OF BOWEL AND BLADDER AND PONCHO CARE PERFORMED. IV IN RIGHT FOOT-NS @ 100ML/HR. FALL PRECAUTIONS IN PLACE AND HOURLY ROUNDS MADE. WILL CONTINUE WITH PLAN OF CARE AND NURSING TO MONITOR.
[2020-10-03 08:15] VITALS: BP 121/79
[2020-10-03] MEDS ORDERED: SENNA PLUS TAB1 EACH PO (09:10)
[2020-10-03] MEDS ORDERED: MIRALAX17 GM PO (09:10)
[2020-10-03] MEDS ORDERED: CITRATE OF MAG296 M1 PO (09:10)
[2020-10-03 12:09] VITALS: BP 121/79
[2020-10-03 12:13] VITALS: BP 121/79
--- NOTE | 2020-10-03 12:18 | NUR ---
PT.HAS DISCHARGE ORDERS TO RETURN TO PRISON TODAY. NOTIFIED CARPET LAYER,[phone] AND FAXED DISCHARGE SUMMARY TO [phone] PER HER REQUEST. TOLD HER PT.NEEDED TO EAT LUNCH AND BE PICKED UP AFTER. SHE WILL SEE ABOUT WHAT TIME THEY CAN PICK HIM UP AND CALL CM BACK.
--- NOTE | 2020-10-03 14:00 | NUR ---
DANYEL/HAM BONER CALLED BACK AND WOULD LIKE TO SET UP MEDICAID TRANSPORTATION. PT.HAS HIS OWN WC. CALLED [facility] AT [phone]. INFORMATION GIVEN. TRIP #[id number]. THEY WILL PICK PT.UP BETWEEN [phone]. NOTIFIED DANYEL,NURSING, PT. AND MOTHER, WHO IS AT BEDSIDE. NURSING TO CALL REPORT TO CHAVO CONTRERAS,RN -[phone]. CHART COPIED TO GO WITH PT.
--- NOTE | 2020-10-03 19:50 | NUR ---
PATIENT UP IN WHEELCHAIR AWAITING TRANSPORTATION VAN. DISCHARGE PAPERS REVIEWED AND SIGNED WITH PATIENT'S MOTHER. IV REMOVED. DISCHARGE PAPERS AND COPY OF CHART WITH PATIENT. [facility] TRANSPORT[facility] HAS BEEN CONTACTED TWICE ABOUT PICKING PATIENT UP. SPOKE WITH RANDAL WITH [facility] ON THE SECOND CALL AND HE STATED TRIP WAS ACCEPTED BY [facility] AND NO WING SCORER WAS AVAILABLE WITH THAT GROUP AND HE RESUBMITTED REQUEST AND STATED A WING SCORER SHOULD BE AVAILABLE WITHIN THE HOUR. I EXPLAINED SITUATION TO PATIENT'S MOTHER WHO IS AT BEDSIDE. REPORT WAS CALLED TO CHAVO THIS AFTERNOON.
[2020-10-03 22:39] VITALS: BP 107/74
[2020-10-04] VITALS: BP 199/103
--- NOTE | 2020-10-04 07:38 | NUR ---
AT APPROX 2200 RECEIVED CALL FROM THE TRANSPORT CO. STATING THEY COULD NOT TRANSPORT THE PATIENT DUE TO NON-FOLDING WHEELCHAIR. AT APPROX [address] BATISTA THAT PATIENT NOT DISCHARGED D/T TRANSPORT ISSUES AND PT HAS NO IV. PT TRANSFERED FROM HIS WHEELCHAIR TO BED, EVENING MEDICATIONS ADMINISTERED. PT HAS BEEN SLEEPING WELL. REPORT GIVEN AND CARE TRANSFERED TO DAY SHIFT NURSE APPROX 0712.
[2020-10-04 08:00] VITALS: BP 105/72
--- NOTE | 2020-10-04 09:13 | NUR ---
SPOKE WITH DANYEL/PTS DOCUMENTATION LIAISON [phone] ABOUT 0845. SHE SAID THE ROADS SEEM BETTER TODAY SO THEY WILL AIM FOR 1100 TO PICK PT.UP WITH THEIR VAN. NALDO,US NOTIFIED AND WILL LET RAMYA HERBERT KNOW.
--- NOTE | 2020-10-04 10:20 | NUR ---
INFORMED PT.HAS BEEN FEBRILE THIS AM. ORDERING TESTS. NOTIFIED DANYEL/[facility] FOR INCURABLES OF ABOVE. SHE WILL WAIT TO HEAR BACK FROM ME THIS AFTERNOON REGARDING DISCHARGE.
[2020-10-04 13:09] VITALS: BP 112/76
[2020-10-04 13:59] LABS: INFLUENZA A ANTIGEN Negative (Negative); INFLUENZA B ANTIGEN Negative (Negative)
[2020-10-04 16:13] VITALS: BP 112/77
--- NOTE | 2020-10-04 18:00 | NUR ---
PT RESTING IN BED WITH DAD AT BEDSIDE. UPDATED ON PLAN OF CARE. NO DISTRESS NOTED IN PT. IV REMAINS PATENT. Q2 TURNS. CALL LIGHT WITHIN REACH. ABX GIVEN. PT GIVEN PRN TYLENOL FOR FEVER. WILL CONTINUE TO MONITOR.
[2020-10-04 20:09] VITALS: BP 92/56
[2020-10-05 00:05] VITALS: BP 103/71
[2020-10-05 04:00] VITALS: BP 88/63
[2020-10-05 08:00] VITALS: BP 101/71
[2020-10-05 12:32] VITALS: BP 121/81
--- NOTE | 2020-10-05 13:00 | NUR ---
DR. BATISTA NOTIFIED VIA U CALL MD. PT NOW ON O2. BP 121/81, P 102, R 16, 97.7, 92% ON 2 L.
--- NOTE | 2020-10-05 15:22 | NUR ---
NO DISCHARGE ANTICIPATED THIS WEEKEND. ON O2, IVAB AND FEBRILE AT TIMES. LEVEL OF CARE AT DISCHARGE WILL BE HOME TO RETIREMENT. THEY HAVE ALL SERVICES FOR PT.SO NO HOME HEALTH NEEDED.
[2020-10-05 16:03] VITALS: BP 119/71
--- NOTE | 2020-10-05 17:51 | NUR ---
PT REMAINS CONFUSED. WILL SMILE AT TIMES. MOM IS AT BEDSIDE. PT FLUSHED AT TIMES. VITALS AND TEMP MONITORED CLOSELY. LEFT UPPER ARM MIDLINE PLACED BY ENGLISH HORN PLAYER. PT REMAINS ON O2. EATING DINNER AT THIS TIME. WILL CONTIUE TO MONITOR.
[2020-10-05 20:00] VITALS: BP 110/70
[2020-10-06 00:50] VITALS: BP 87/49
[2020-10-06 04:15] VITALS: BP 101/63
--- NOTE | 2020-10-06 04:28 | NUR ---
PATIENT SLEPT WELL DURING THIS SHIFT. PT TURNED Q2H PER PROTOCAL. PT INCONTINENT OF URINE. PT NON VERBAL DURING THIS SHIFT BUT FOLLOWED COMMANDS AND WAS VERY COOOPERATIVE. PILLS GIVEN CRUSHED IN PUDDING. PT ON O2 @ 2 LITERS PER NASAL CANNULA. PT AFEBRILE THIS SHIFT. FREQUENTLY USED ITEMS AND CALL LIGHT WITHIN REACH. SIDERAILS UPX3 AND BED ALARM ON. WILL CONTINUE TO MONITOR.
[2020-10-06 05:14] LABS: HEMATOCRIT 32.5 % (42.0-52.0); MCH 30.4 pg (26.0-34.0); MCHC 34.4 g/dL (28.0-37.0); MCV 88.5 fL (80.0-100.0); MPV 7.8 fl. (7.2-11.1); RBC 3.67 mil/uL (4.50-6.00); RDW-CV 13.3 % (10.5-14.5); WBC 13.4 thou/uL (4.0-11.0)
[2020-10-06 06:05] LABS: CALCIUM 7.7 mg/dL (8.5-10.1); CREATININE 0.4 mg/dL (0.6-1.3); MAGNESIUM 2.4 mg/dL (1.8-2.4); POTASSIUM 4.2 mmol/L (3.5-5.1)
[2020-10-06 06:07] LABS: HEMOGLOBIN 11.2 gm/dL (14.0-18.0)
[2020-10-06 08:30] VITALS: BP 101/67
[2020-10-06] MEDS ORDERED: AZITHROMYCIN500 MG PO (09:51)
[2020-10-06] MEDS ORDERED: CEFDINIR300 MG PO (09:51)
[2020-10-06 12:06] LABS: URINE BILIRUBIN NEGATIVE (Negative); URINE BLOOD NEGATIVE (Negative); URINE CLARITY SL CLOUDY; URINE COLOR YELLOW; URINE GLUCOSE-RANDOM NEGATIVE (Negative); URINE KETONES TRACE (Negative); URINE LEUKOCYTES-REFLEX TRACE (Negative); URINE NITRITE-REFLEX NEGATIVE (Negative); URINE PROTEIN 1+ (Negative); URINE UROBILINOGEN 0.2 E.U./dl (0.2-1.0)
[2020-10-06 12:24] LABS: SQUAMOUS NONE SEEN /LPF (0-3)
[2020-10-06 12:25] VITALS: BP 121/79
[2020-10-06 12:25] LABS: BACTERIA-REFLEX >30 Many /HPF (None Seen); CASTS None Seen /LPF (None Seen); CRYSTALS None Seen /LPF (None Seen); MUCUS 4-6 Moderate strn/LPF (None Seen); URINE RBC 0-2 Rare /HPF (0-2); URINE WBC-REFLEX 6-15 Few /HPF (0-5)
[2020-10-06 12:26] LABS: AMORPHOUS PHOSPHATES Moderate /LPF (None Seen)
--- NOTE | 2020-10-06 20:41 | NUR ---
Pt remained alert and pleasant with staff. Pt grinning at staff each time we entered the room. Pt had 2 Liquid BM today. Pt remained afebrile. Pt's detention came to pick him up at discharge. Pt ready to go home!
== END 2020-10-06 15:00 | disposition home health service (06) | DRG 388 ==
LOC: M.ERS 09:00 → M.TBA-ER 11:40 → M.2W 11:40 → M.3W 10-01 17:06
PROVIDERS: Emergency Medicine Emergency Medical Services; Family Medicine; Internal Medicine; ADMIT Internal Medicine; ATTEND Internal Medicine
PROC: 0D9670Z Drainage of Stomach with Drainage Device, Via Natural or Artificial Opening (ICD-10-PCS; principal; 2020-09-30)
DX: K56.7 Ileus, unspecified (principal); J69.0 Pneumonitis due to inhalation of food and vomit; R65.10 Systemic inflammatory response syndrome (SIRS) of non-infectious origin without acute organ dysfunction; E44.1 Mild protein-calorie malnutrition; Z68.1 Body mass index [BMI] 19.9 or less, adult; K56.609 Unspecified intestinal obstruction, unspecified as to partial versus complete obstruction; G80.9 Cerebral palsy, unspecified; E87.6 Hypokalemia; G40.909 Epilepsy, unspecified, not intractable, without status epilepticus; J45.909 Unspecified asthma, uncomplicated; Z20.822 Contact with and (suspected) exposure to COVID-19; Z79.899 Other long term (current) drug therapy

== ENCOUNTER → 2020-11-19 | Outpatient (CLI) | payer MEDICARE, OTHER, MEDICAID ==
[~2020-11-19] MED LIST changes: +AZITHROMYCIN500 MG PO; +CEFDINIR300 MG PO; +ENEMA READY-TO133 ML; +FAMOTIDINE 40 M40 M1 PO; +THEREMS-M1 EACH PO; +TRIPLE ANTIBIOT28 G2; +[UNRECOGNIZED DRUG - OTHER]
== END ==
LOC: M.RAD 07:35
PROVIDERS: ATTEND Internal Medicine
DX: J18.9 Pneumonia, unspecified organism (principal); R91.8 Other nonspecific abnormal finding of lung field

== ENCOUNTER 2021-07-12 10:11 | Inpatient (IN) | payer MEDICARE, OTHER, MEDICAID ==
[~2021-07-12] VITALS: Ht 160 cm; Wt 59.9 kg
[2021-07-12 10:17] VITALS: BP 165/65
[2021-07-12 10:48] LABS: ABSOLUTE EOSINOPHILS 0.1 thou/uL (0.0-0.7); ABSOLUTE LYMPHOCYTES 1.2 thou/uL (0.8-5.3); ABSOLUTE MONOCYTES 1.2 thou/uL (0.0-1.2); ABSOLUTE NEUTROPHILS 6.1 thou/uL (1.6-8.1); BASOPHILS 0.6 %; EOSINOPHILS 0.7 %; HEMATOCRIT 39.4 % (42.0-52.0); HEMOGLOBIN 13.4 gm/dL (14.0-18.0); MCH 30.7 pg (26.0-34.0); MCV 90.4 fL (80.0-100.0); MONOCYTES 13.6 %; MPV 7.6 fl. (7.2-11.1); NUCLEATED RBCS 0 /100WBC; PLATELET COUNT* 231 thou/uL (150-400); POLYS 71.1 %; RBC 4.36 mil/uL (4.50-6.00); RDW-CV 12.8 % (10.5-14.5); WBC 8.6 thou/uL (4.0-11.0)
[2021-07-12 10:57] LABS: CREATININE 0.5 mg/dL (0.6-1.3); POTASSIUM 4.2 mmol/L (3.5-5.1)
[2021-07-12 11:02] LABS: ALBUMIN 2.8 g/dL (3.4-5.0); TOTAL BILIRUBIN 0.4 mg/dL (<0.1-1.0); TOTAL PROTEIN 6.8 g/dL (6.4-8.2); URIC ACID* 2.6 mg/dL (2.6-7.2)
[2021-07-12 20:37] VITALS: BP 119/78
[2021-07-12 22:00] VITALS: BP 119/78
--- NOTE | 2021-07-13 05:03 | NUR ---
PT ARRIVE TO THE UNIT AT ABOUT 2200. ORIENTED TO HIMSELF ONLY, NONVERBAL. VSS ON RA. LT KNEE SPLINT IN PLACE. NO APPARENT PAIN. PT INCONTINENT OF BOTH BOWEL AND BLADDER. HAD SMALL BM. TURNS, HOURLY RONDINGS DONE. WILL CONTINUE TO MONITOR.
[2021-07-13 08:00] VITALS: BP 125/71
[2021-07-13 08:43] LABS: HEMATOCRIT 35.3 % (42.0-52.0); MCH 30.5 pg (26.0-34.0); MCV 89.8 fL (80.0-100.0); MPV 8.2 fl. (7.2-11.1); RBC 3.94 mil/uL (4.50-6.00); RDW-CV 12.7 % (10.5-14.5); WBC 6.4 thou/uL (4.0-11.0)
[2021-07-13 09:00] LABS: CALCIUM 7.8 mg/dL (8.5-10.1); CREATININE 0.5 mg/dL (0.6-1.3); POTASSIUM 3.9 mmol/L (3.5-5.1)
[2021-07-13 17:39] VITALS: BP 109/75
--- NOTE | 2021-07-13 19:47 | NUR ---
PT VERY HAPPY TODAY. VSS AFEBRILE. PT IS ON BED REST. ASKED GAIL THE CONSULTING PROJECT DIRECTOR TO GET HIS LEG BRACE TWO TIMES AND STILL DID NOT GET THE BRACE. PT ON BEDREST AT THIS POINT. PT CAN SIT IN HIS WHEEL CHAIR BUT HIS WHEEL CHAIR IS AT THE DETENTION. WILL CONTINUE TO MONITOR PLAN OF CARE.
[2021-07-13 20:00] VITALS: BP 129/88
--- NOTE | 2021-07-14 05:05 | NUR ---
PT SLEPT OFF AND ON OVERNIGHT. SPEAKS VERY FEW WORDS AND DIFFICULT TO UNDERSTAND AT TIMES. TAKING MEDS IN [place] PUDDING IN SMALL BITES AT HS. LHAND SL IV. PT TURNED AND REPOSITIONED Q2 HOURS AND PRN FOR SKIN CARE AND COMFORT. INCONT URINE AND BM OVERNIGHT. SPLINT INTACT OVERNIGHT TO L LEG, BRACE OBTAINED ORDERED. SEIZURE PRECAUTIONS IN PLACE. FALL PRECAUTIONS IN PLACE. NO LABS THIS MORNING.
[2021-07-14 08:23] VITALS: BP 119/87
[2021-07-14 13:27] VITALS: BP 119/87
--- NOTE | 2021-07-14 15:27 | NUR ---
PT DC AT 1525 BACK TO [facility] BY AM[facility]ULANCE. MOTHER IN ROOM WHEN EMS ARRIVED FOR WEB SITE SPECIALIST. DANYEL AND CHAVO RN FROM [facility]URSING HOME BOTH NOTIFIED ABOUT PT DC. PT STABLE. BRACE IN PLACE. PERSONAL BELONGINGS SENT WITH PT.
== END 2021-07-14 15:30 | disposition home or self-care (01) | DRG 543 ==
LOC: M.ERS 10:11 → M.TBA-ER 12:02 → M.3W 12:02
PROVIDERS: Physician Assistant; ADMIT Internal Medicine; ATTEND Internal Medicine
DX: M80.852A Other osteoporosis with current pathological fracture, left femur, initial encounter for fracture (principal); E44.0 Moderate protein-calorie malnutrition; M25.052 Hemarthrosis, left hip; G80.9 Cerebral palsy, unspecified; Z20.822 Contact with and (suspected) exposure to COVID-19; M85.862 Other specified disorders of bone density and structure, left lower leg; J45.909 Unspecified asthma, uncomplicated; K59.00 Constipation, unspecified; K59.09 Other constipation; G40.909 Epilepsy, unspecified, not intractable, without status epilepticus; Z68.23 Body mass index [BMI] 23.0-23.9, adult; Z79.899 Other long term (current) drug therapy